=== PATIENT | female | born 1980 | race Caucasian/White ===

== ENCOUNTER 2019-08-22 01:10 | Emergency (ER) | payer OTHER, MEDICAID ==
[~2019-08-22] VITALS: Ht 160 cm; Wt 106.6 kg
[2019-08-22 01:19] VITALS: BP 110/72
--- NOTE | 2019-08-22 01:35 | NUR ---
PT MOVED FROM EMS [facility] TO BED 12
--- NOTE | 2019-08-22 01:44 | NUR ---
XR AT BEDSIDE.
[2019-08-22] MEDS ORDERED: KETOROLAC 30 MG/ML VIAL IM ONE (01:45)
--- NOTE | 2019-08-22 01:47 | NUR ---
AROUND 7PM HEALTHCARE WORKER AT [facility] ROLLED PT TO CHANGE HER AND ROLLED TOO FAR AND PT FELL OUT OF BED AND ONTO THE FLOOR AND SUSTAINED A HEAD LACERATION TO LEFT FOREHEAD AND CENTER OF FOREHEAD; NO ACTIVE BLEEDING, DRY BLOOD PRESENT. APPEARS FACILITY APPLIED STERI-STRIPS; C/O RIGHT BIG TOE PAIN 09/08, WHICH HAS BEEN AN ONGOING C/C AT THE FACILITY PER EMS; PER EMS PT'S BASELINE IS A/O X 3. RT BIG TOE SHOWS REDNESS. VSS. PMH: QUADRIPLEGIC/CENTRAL PAIN SYNDROME/GERD/ANXIETY NKA.
--- NOTE | 2019-08-22 01:58 | NUR ---
[facility]ARM[facility] ORDERED BLOOD WORK FOR URIC ACID LEVEL. PT REFUSED TO HAVE BLOOD DRAWN. MICHELE SWANSON AWARE.
[2019-08-22] MEDS ORDERED: LIDOCAINE/EPI 1% 1:100000 20 ML VIAL INJ ONE (02:10)
--- NOTE | 2019-08-22 02:25 | NUR ---
PT TRANSFERRED TO CT VIA [facility].
--- NOTE | 2019-08-22 02:45 | NUR ---
PT RETURNED BACK FROM CT VIA [facility].
--- NOTE | 2019-08-22 02:50 | NUR ---
MICHELE SPOKE TO PT ABOUT URIC ACID BLOOD DRAW AND PT CHANGED HER MIND AND ACCEPTED BLOOD TO BE DRAWN.
[2019-08-22] MEDS ORDERED: BACITRACIN OINT 500 UNITS/GM PKT TP ONE ×2 (03:07→03:10)
--- NOTE | 2019-08-22 04:00 | NUR ---
CALLED [facility] TO GIVE REPORT. SPOKE TO GREGORIO RN CERAMIST AND LET HER KNOW THAT TRANSPORT WILL ARRIVE AT [phone] TODAY. ALL QUESTIONS AND CONCERNS ANSWERED AT THIS TIME.
--- NOTE | 2019-08-22 04:00 | NUR ---
GREGORIO RN INFORMATION MANAGEMENT OFFICER SAID WHEN TRNASPORTATION COMES PT WILL BE GOING TO ROOM 28A.
--- NOTE | 2019-08-22 04:01 | NUR ---
PT IS SLEEPING COMFORTABLY IN BED. SIDE RAILS UP X1. NO DISTRESS NOTED.
--- NOTE | 2019-08-22 04:18 | NUR ---
PT REFUSED ORTHOBOOT PER EMT.
--- NOTE | 2019-08-22 06:41 | NUR ---
spoke to pt mother carson for update on pt. pt was okay to release info on her condition. all questions and concerns answered at this time.
--- NOTE | 2019-08-22 07:10 | NUR ---
Pt report given to YASIR FELIX. Transfer of care at this time.
--- NOTE | 2019-08-22 08:18 | NUR ---
PT RESTING IN BED, AROUSABLE TO VOICE. RESP EVEN AND UNLABORED. BED IN LOWEST POSITION. ALL NEEDS MET AT THIS TIME
[2019-08-22 10:30] VITALS: BP 121/75
--- NOTE | 2019-08-22 10:30 | NUR ---
Patient discharged with v/s stable. Written and verbal after care instructions given and explained. Patient verbalized understanding. Ambulance Transport with by caregiver. All questions addressed prior to discharge. Advised to follow up with PMD.
--- NOTE | 2019-08-22 10:31 | NUR ---
[facility] [facility] at bedside for return transport to [facility].
== END 2019-08-22 10:31 | disposition home or self-care (01) ==
LOC: MED 01:10
DX: S92.424A Nondisplaced fracture of distal phalanx of right great toe, initial encounter for closed fracture (principal); S01.81XA Laceration without foreign body of other part of head, initial encounter; K21.9 Gastro-esophageal reflux disease without esophagitis; F41.9 Anxiety disorder, unspecified; W06.XXXA Fall from bed, initial encounter; Y93.89 Activity, other specified; Y92.89 Other specified places as the place of occurrence of the external cause; Y99.8 Other external cause status
CPT/HCPCS: 12013; 36415; 70450; 70486; 73660; 84550; 90471; 90715; 96372; 99285; J1885; J2001; Q0092

== ENCOUNTER 2022-09-12 13:40 | Inpatient (IN) | payer OTHER, MEDICAID ==
[~2022-09-12] VITALS: Ht 160 cm; Wt 59.9 kg
[2022-09-12 13:48] VITALS: BP 113/63; PULSE 109; RESP 20; TEMP 99.3
--- NOTE | 2022-09-12 13:58 | NUR ---
Patient BIBA to bed 11.
[2022-09-12] MEDS ORDERED: NACL 0.9% 1,000 ML IV SCH (14:00)
[2022-09-12] MEDS ORDERED: cefTRIAXone 1,000 MG in DEXT 5% MINI-BAG PLUS 50 ML IV ONE (14:00)
--- NOTE | 2022-09-12 14:10 | NUR ---
Lab at bedside
--- NOTE | 2022-09-12 14:15 | NUR ---
X-Ray at bedside.
[2022-09-12 14:22] LABS: BASOPHILS # (AUTO) 0.2 K/uL (0.00-0.22); BASOPHILS % (AUTO) 1.3 % (0.0-2.0); EOSINOPHILS # (AUTO) 0.6 K/uL (0-0.4); EOSINOPHILS % (AUTO) 4.3 % (0.0-4.0); HEMATOCRIT 33.3 % (36-48); HEMOGLOBIN 10.5 g/dL (12.0-16.0); LYMPHOCYTES # (AUTO) 3.2 K/uL (2.5-16.5); LYMPHOCYTES % (AUTO) 21.8 % (20.5-51.1); MEAN CORPUSCULAR HEMOGLOBIN 24 pg (27-31); MEAN CORPUSCULAR HGB CONC 32 g/dL (33-37); MEAN CORPUSCULAR VOLUME 76.2 fL (80-94); MONOCYTES # (AUTO) 0.9 K/uL (0.8-1.0); MONOCYTES % (AUTO) 6.1 % (1.7-9.3); NEUTROPHILS # (AUTO) 9.8 K/uL (1.8-7.7); NEUTROPHILS % (AUTO) 66.5 % (42.2-75.2); PLATELET COUNT (AUTO) 519 K/uL (140-450); RED BLOOD CELL COUNT(AUTO) 4.37 MIL/uL (4.20-5.40); RED CELL DISTRIBUTION WIDTH 17.2 % (11.6-13.7); WHITE BLOOD COUNT (AUTO) 14.7 K/uL (4.8-10.8)
[2022-09-12 14:44] LABS: ALBUMIN 2.9 g/dL (3.4-5.0); ANION GAP 11.7 (8-16); CARBON DIOXIDE 24.7 mmol/L (21-32); CREATININE 0.6 mg/dL (0.6-1.3); POTASSIUM 3.4 mmol/L (3.5-5.1); TOTAL BILIRUBIN 0.1 mg/dL (0.0-1.0)
--- NOTE | 2022-09-12 14:50 | NUR ---
# 8 FR Urinary catheter inserted utilizing sterile technique. Immediate return of 100 ml yellow urine noted. Urine sample collected and sent to lab. Pt tolerated procedure well. Incontinence care was provided to patient.
--- NOTE | 2022-09-12 14:55 | NUR ---
Patient taken to CT via gurney.
--- NOTE | 2022-09-12 15:08 | NUR ---
patient returned from CT.
--- NOTE | 2022-09-12 15:45 | NUR ---
42 y/o female biba from [facility] for ALOC and increased WBC. WBC was 16.84 on 09/11/22. Patient is AAOx2. Per EMS, patient's baseline is at AAOx 2. Patient is on Levaquin 500mg PO. Patient is noted to have contractions to both arms. Patient denies any pain or discomfort at this time. Patient is a DNR with selective treatment. Call light is within reach. Medical History: Quadriplegia, Intracranial Injury without loss of conciousness, GERD NKDA
[2022-09-12 15:47] LABS: BILIRUBIN,URINE NEGATIVE (NEGATIVE); BLOOD, URINE TRACE-I (NEGATIVE); COLOR,URINE YELLOW (YELLOW); LEUKOCYTE ESTERASE ,URINE 1+ (NEGATIVE); NITRITE, URINE NEGATIVE (NEGATIVE); UGLUCOSE NEGATIVE (NEGATIVE)
[2022-09-12] MEDS ORDERED: cefTRIAXone 1,000 MG VIAL ONE (15:51)
--- NOTE | 2022-09-12 16:07 | NUR ---
Called and spoke to KAYLEIGH Jones at [facility] to request med list to be faxed.
[2022-09-12 16:18] LABS: APPEARANCE,URINE HAZY (CLEAR)
[2022-09-12 16:24] LABS: RBC,URINE 0-5 /HPF (0-5)
[2022-09-12] MEDS ORDERED: LACT-103 PO (18:17)
[2022-09-12] MEDS ORDERED: DOCU-299 PO (18:17)
[2022-09-12] MEDS ORDERED: CYCL-711 PO (18:17)
[2022-09-12] MEDS ORDERED: GABA100C PO (18:17)
--- NOTE | 2022-09-12 18:34 | NUR ---
Patient will be admitted to care of DR JACKSON. Admited to TELEMETRY. Will go to [id number]. Belongings list completed. Report to POLLO COOLEY
--- NOTE | 2022-09-12 18:45 | NUR ---
RECEIVED REPORT FROM ER NURSE, PT ARRIVED VIA [facility]. PT IS STABLE, CALL LIGHT WITHIN REACH.
[2022-09-12 19:00] VITALS: BP 112/80; PULSE 98; RESP 18; TEMP 98; O2SAT 99
--- NOTE | 2022-09-12 19:20 | NUR ---
ENDORSED TO [employer]ER[employer] SAL[employer] CONSULTANT NURSE FOR CONTINUITY OF CARE AND ADMISSION. PT IS STABLE, CALL LIGHT WITHIN REACH.
--- NOTE | 2022-09-12 19:30 | NUR ---
RECEIVED REPORT FROM DAY RN FOR CONTINUITY OF CARE. PT AWAKE, ALERT AND ORIENTED X 2. ON ROOM AIR, BREATHING EVEN AND UNLABORED. IV ON L HAND G22. NO S/SX OF DISTRESS. ALL PRECAUTIONS IN PLACE. CALL LIGHT WITHIN REACH.WILL CONTINUE TO MONITOR.
[2022-09-12 20:00] VITALS: PULSE 103
--- NOTE | 2022-09-12 20:00 | NUR ---
FED PATIENT. SPOKE WITH MOTHER KAMERON, CONTACT NUMBER GIVEN. ALL PRECAUTIONS IN PLACE. CALL LIGHT WITHIN REACH. WILL CONTINUE TO MONITOR.
[2022-09-12] MEDS ORDERED: AZITHROMYCIN 500 MG INJ VIAL IV ONE (20:35)
[2022-09-12] MEDS: AZITHROMYCIN 500 MG in DEXTROSE 5% 250 ML IV SCH (21:00)
[2022-09-12] MEDS ORDERED: LORazepam 2 MG/ML VIAL IVP PRN (22:25)
[2022-09-13] VITALS: BP 115/61; PULSE 102; RESP 18; TEMP 98.1; O2SAT 99
--- NOTE | 2022-09-13 03:46 | NUR ---
PT ASLEEP. NO S/SX OF DISTRESS. VITAL SIGNS STABLE. ALL PRECAUTIONS IN PLACE. CALL LIGHT WITHIN REACH. WILL CONTINUE TO MONITOR.
[2022-09-13 04:00] VITALS: BP 109/51; PULSE 94; PULSE 96; RESP 18; TEMP 97.2; O2SAT 98
[2022-09-13 05:01] LABS: BASOPHILS # (AUTO) 0.2 K/uL (0.00-0.22); BASOPHILS % (AUTO) 1.3 % (0.0-2.0); EOSINOPHILS # (AUTO) 0.6 K/uL (0-0.4); EOSINOPHILS % (AUTO) 4.1 % (0.0-4.0); HEMATOCRIT 30.6 % (36-48); HEMOGLOBIN 9.8 g/dL (12.0-16.0); LYMPHOCYTES # (AUTO) 3.5 K/uL (2.5-16.5); LYMPHOCYTES % (AUTO) 24.2 % (20.5-51.1); MEAN CORPUSCULAR HEMOGLOBIN 24 pg (27-31); MEAN CORPUSCULAR HGB CONC 32 g/dL (33-37); MEAN CORPUSCULAR VOLUME 75.9 fL (80-94); MONOCYTES % (AUTO) 7.2 % (1.7-9.3); NEUTROPHILS # (AUTO) 9.1 K/uL (1.8-7.7); NEUTROPHILS % (AUTO) 63.2 % (42.2-75.2); PLATELET COUNT (AUTO) 483 K/uL (140-450); RED BLOOD CELL COUNT(AUTO) 4.03 MIL/uL (4.20-5.40); RED CELL DISTRIBUTION WIDTH 17.2 % (11.6-13.7); WHITE BLOOD COUNT (AUTO) 14.4 K/uL (4.8-10.8)
[2022-09-13 05:05] LABS: ANION GAP 10.8 (8-16); CARBON DIOXIDE 25.1 mmol/L (21-32); CREATININE 0.5 mg/dL (0.6-1.3); POTASSIUM 3.9 mmol/L (3.5-5.1)
--- NOTE | 2022-09-13 07:01 | NUR ---
PT IS STABLE. NO ACUTE EVENTS THROUGHOUT THE NIGHT. ALL NEEDS MET.NO S/SX OF DISTRESS. NO COMPLAINS OF PAIN AT THIS MOMENT. ALL PRECAUTIONS IN PLACE. CALL LIGHT WITHIN REACH. WILL ENDORSE TO DAY SHIFT NURSE.
--- NOTE | 2022-09-13 07:30 | NUR ---
RECEIVED PT FROM NIGHT RN, PT IS AWAKE AND LYING ON THE BED WITH SIDE RAILS UP AND CALL LIGHT WITHIN REACH, IV LINE NOTED ON THE RIGHT HAND G. 22 ON SALINE LOCK, ON ROOM AIR, PT IS ORIENTED TO SELF ONLY, NO SIGN OF DISTRESS NOTED AND WILL CONTINUE TO MONITOR PT.
[2022-09-13 08:00] VITALS: BP 112/76; PULSE 103; PULSE 87; RESP 18; TEMP 97.5; O2SAT 98
[2022-09-13] MEDS ORDERED: MAG SULF 2000 MG/WATER PREMIX 50 ML IV PRN (08:00)
[2022-09-13 12:00] VITALS: BP 109/38; PULSE 74; RESP 18; TEMP 97.8; O2SAT 94
--- NOTE | 2022-09-13 14:30 | NUR ---
PT HAD A BOWEL MOVEMENT AND WAS CLEANED AND REPOSITIONED NOW.
--- NOTE | 2022-09-13 15:30 | NUR ---
SWALLOW EVALUATION IS BEING DONE TO PT NOW.
--- NOTE | 2022-09-13 15:44 | NUR ---
PT WAS SEEN FOR DYSPHAGIA. PT WAS ABLE TO SAFELY SWALLOW PUREE DIET WITH THIN LIQUID. MILD DIFFICULTY WITH MASTICATION SKILLS FOR MS DIET. RECOMMENDATION PUREE DIET WITH THIN LIQUID
[2022-09-13 16:00] VITALS: BP 115/80; PULSE 80; RESP 18; TEMP 97.6; O2SAT 95
[2022-09-13] MEDS: AZITHROMYCIN 500 MG in DEXTROSE 5% 250 ML IV SCH (16:55)
--- NOTE | 2022-09-13 19:47 | NUR ---
ENDORSED PT TO NIGHT RN FOR CONTINUITY OF CARE, PT IS STABLE AT THIS TIME
[2022-09-13 20:00] VITALS: BP 118/75; PULSE 85; PULSE 87; RESP 18; TEMP 98; O2SAT 97; O2SAT 98
[2022-09-13] MEDS ORDERED: DOCUSATE SODIUM 100 MG GELCAP PO PRN (22:05)
[2022-09-13] MEDS ORDERED: ONDANSETRON 4 MG/2 ML VIAL IVP PRN (22:05)
[2022-09-13] MEDS ORDERED: MORPHINE SULFATE 2 MG/ML SYR IVP PRN (22:05)
[2022-09-13] MEDS ORDERED: POTASSIUM CHLORIDE 10 MEQ TABER PO PRN (22:05)
[2022-09-13] MEDS ORDERED: ACETAMINOPHEN 325 MG TAB PO PRN (22:05)
[2022-09-13] MEDS ORDERED: LORazepam 2 MG/ML VIAL IVP PRN (22:05)
[2022-09-13] MEDS: NACL 0.9% 1,000 ML IV SCH (22:05)
[2022-09-14] VITALS: BP 112/72; PULSE 82; RESP 18; TEMP 97.8; O2SAT 9
[2022-09-14 04:00] VITALS: BP 116/74; PULSE 80; RESP 18; TEMP 97.6; O2SAT 95
--- NOTE | 2022-09-14 06:17 | NUR ---
Received patient from previous shift, patient is alert and oriented x3, came in for alter mental status. Slept well overnight, vital sign is stable, has 1 huge brown, soft bowel movement. Placed new 24 gauge piv at left hand, runs with nss @100ml/hour. Right hand iv is infiltrated, warm compress placed over right hand. Q2 hour turning, skin is intact, patient is paraplegic.
[2022-09-14 06:50] LABS: BASOPHILS # (AUTO) 0.1 K/uL (0.00-0.22); BASOPHILS % (AUTO) 0.9 % (0.0-2.0); EOSINOPHILS # (AUTO) 0.5 K/uL (0-0.4); EOSINOPHILS % (AUTO) 3.5 % (0.0-4.0); HEMATOCRIT 31.1 % (36-48); LYMPHOCYTES # (AUTO) 2.8 K/uL (2.5-16.5); LYMPHOCYTES % (AUTO) 20.9 % (20.5-51.1); MEAN CORPUSCULAR HEMOGLOBIN 24 pg (27-31); MEAN CORPUSCULAR HGB CONC 32 g/dL (33-37); MEAN CORPUSCULAR VOLUME 75.8 fL (80-94); MONOCYTES # (AUTO) 0.9 K/uL (0.8-1.0); MONOCYTES % (AUTO) 6.4 % (1.7-9.3); NEUTROPHILS # (AUTO) 9.1 K/uL (1.8-7.7); NEUTROPHILS % (AUTO) 68.3 % (42.2-75.2); PLATELET COUNT (AUTO) 485 K/uL (140-450); RED BLOOD CELL COUNT(AUTO) 4.11 MIL/uL (4.20-5.40); RED CELL DISTRIBUTION WIDTH 17.1 % (11.6-13.7); WHITE BLOOD COUNT (AUTO) 13.3 K/uL (4.8-10.8)
[2022-09-14 06:57] LABS: ANION GAP 10.2 (8-16); CARBON DIOXIDE 26.4 mmol/L (21-32); CREATININE 0.4 mg/dL (0.6-1.3); POTASSIUM 3.6 mmol/L (3.5-5.1)
[2022-09-14 07:59] VITALS: RESP 20; O2SAT 98
--- NOTE | 2022-09-14 08:00 | NUR ---
receive the patient from the auto club travel counselor rn in rm 111A with admitting diagnosis of altered mental status pneumonia , urinary tract infection . for antibiotic therapy . will continue to monitor
[2022-09-14 08:01] VITALS: PULSE 85; RESP 20; O2SAT 99
[2022-09-14] MEDS: NACL 0.9% 1,000 ML IV SCH (09:56)
--- NOTE | 2022-09-14 11:23 | NUR ---
PATIENT HAS BEEN SCREENED AND CATEGORIZED MODERATE NUTRITION RISK. PATIENT WILL BE SEEN WITHIN 3-5 DAYS OF ADMISSION. 09/13/22-09/17/[address]
--- NOTE | 2022-09-14 11:30 | NUR ---
gave report to [facility] Vu Gracie [phone] under the care of Md Medina in rm 28A . will see the PCP in one week
--- NOTE | 2022-09-14 12:52 | NUR ---
DC orders, patient to return to [facility]. supervisor process testing called [facility] for covered transport with [facility], tenative sisal picker time 1400 via julio, reference number [id number]. Patients nurse made aware. Addendum: 09/14/22 at 1442 by Elyssa Coello RN RN supervisor process testing followed up with [facility] for time of transport [phone]), [facility] will pick patient up no later than 1600. Patients RN updated on above.
--- NOTE | 2022-09-14 14:00 | NUR ---
discontinue the intravenous port , identification [email or web address] . 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
== END 2022-09-14 15:29 | DRG 871 ==
LOC: MED 13:40 → MTU 17:15
PROC: 0T9B70Z Drainage of Bladder with Drainage Device, Via Natural or Artificial Opening (ICD-10-PCS; principal; 2022-09-12)
DX: A41.9 Sepsis, unspecified organism (principal); G82.50 Quadriplegia, unspecified; J18.9 Pneumonia, unspecified organism; N39.0 Urinary tract infection, site not specified; K21.9 Gastro-esophageal reflux disease without esophagitis
CPT/HCPCS: 36415; 70450; 71045; 80048; 80053; 81001; 83036; 83605; 83735; 83880; 84484; 85025; 87040; 87081; 87086; 87186; 92526; 93005; J0456; J0696; J7060; Q0092

== ENCOUNTER 2023-11-18 17:23 | Emergency (ER) | payer OTHER, MEDICAID ==
[~2023-11-18] VITALS: Ht 167.6 cm; Wt 99.8 kg
[~2023-11-18 17:23] MED LIST: CYCL-711 PO; DOCU-299 PO; GABA100C PO; LACT-191 PO
[2023-11-18 17:29] VITALS: BP 126/78; PULSE 75; RESP 17; TEMP 98.1; O2SAT 98
[2023-11-18 18:55] LABS: BASOPHILS # (AUTO) 0.2 K/uL (0.00-0.22); BASOPHILS % (AUTO) 1.4 % (0.0-2.0); EOSINOPHILS # (AUTO) 0.7 K/uL (0-0.4); EOSINOPHILS % (AUTO) 4.8 % (0.0-4.0); HEMATOCRIT 33.1 % (36-48); HEMOGLOBIN 10.2 g/dL (12.0-16.0); LYMPHOCYTES % (AUTO) 28.4 % (20.5-51.1); MEAN CORPUSCULAR HEMOGLOBIN 22 pg (27-31); MEAN CORPUSCULAR HGB CONC 31 g/dL (33-37); MEAN CORPUSCULAR VOLUME 70.9 fL (80-94); NEUTROPHILS # (AUTO) 8.3 K/uL (1.8-7.7); NEUTROPHILS % (AUTO) 58.4 % (42.2-75.2); PLATELET COUNT (AUTO) 534 K/uL (140-450); RED BLOOD CELL COUNT(AUTO) 4.67 MIL/uL (4.20-5.40); RED CELL DISTRIBUTION WIDTH 17.9 % (11.6-13.7); WHITE BLOOD COUNT (AUTO) 14.2 K/uL (4.8-10.8)
[2023-11-18 19:43] LABS: ANION GAP 12.4 (8-16); CALCIUM 8.6 mg/dL (8.5-10.1); CARBON DIOXIDE 25.5 mmol/L (21-32); CREATININE 0.5 mg/dL (0.6-1.3); POTASSIUM 3.9 mmol/L (3.5-5.1)
[2023-11-18 19:46] LABS: ALANINE AMINOTRANSFERASE 8 U/L (12-78); ALCOHOL, BLOOD 4 mg/dL (<10); ALKALINE PHOSPHATASE 93 U/L (50-136); ASPARTATE AMINOTRANSFERASE 14 U/L (15-37); CREATINE KINASE, TOTAL 19 U/L (26-192); THYROID STIMULATING HORMONE 2.28 uIU/mL (0.34-3.74); TOTAL BILIRUBIN 0.2 mg/dL (0.0-1.0); TOTAL PROTEIN, SERUM 7.8 g/dL (6.4-8.2)
[2023-11-18 19:47] LABS: ACETAMINOPHEN < 0.5 ug/ml (10-30); SALICYLATE < 2.8 mg/dL (2.8-20.0)
[2023-11-18 22:47] LABS: APPEARANCE,URINE CLEAR (CLEAR); BILIRUBIN,URINE NEGATIVE (NEGATIVE); BLOOD, URINE TRACE-I (NEGATIVE); COLOR,URINE YELLOW (YELLOW); LEUKOCYTE ESTERASE ,URINE NEGATIVE (NEGATIVE); NITRITE, URINE NEGATIVE (NEGATIVE); PH,URINE 6.5 (5.0-9.0); PROTEIN,URINE NEGATIVE (NEGATIVE); UGLUCOSE NEGATIVE (NEGATIVE); UROBILINOGEN,URINE 0.2 EU/dL (0.2 - 1)
[2023-11-18 22:51] LABS: BACTERIA,URINE 10-30 (MOD) /HPF (None Seen); MUCUS,URINE 1+ /LPF (None Seen); SQUAMOUS EPITHELIAL CELL,UR 4-10 (MOD) /LPF (0-3 (FEW))
[2023-11-18 22:52] LABS: AMPHETAMINE, URINE NEGATIVE ng/ml (NEG <=1000); BARBITURATE, URINE NEGATIVE ng/ml (NEG <=200); BENZODIAZEPINE, URINE NEGATIVE ng/mL (NEG <=200); CANNABINOID, URINE NEGATIVE ng/mL (NEG <=50); COCAINE, URINE NEGATIVE ng/mL (NEG <=300); PHENCYCLIDINE SCREEN,URINE NEGATIVE ng/mL (NEG <=25)
[2023-11-18 22:53] LABS: OPIATE, URINE NEGATIVE ng/mL (NEG <=2000)
[2023-11-19] MEDS ORDERED: cefTRIAXone 1,000 MG VIAL ONE (00:49)
[2023-11-19] MEDS ORDERED: CEPH-588 PO (01:44)
[2023-11-19 13:00] VITALS: BP 121/71; PULSE 99; RESP 16; TEMP 97.8; O2SAT 100
== END 2023-11-19 13:00 ==
LOC: MED 17:23
DX: N39.0 Urinary tract infection, site not specified (principal); R41.0 Disorientation, unspecified; R45.1 Restlessness and agitation; Z86.69 Personal history of other diseases of the nervous system and sense organs; Z79.899 Other long term (current) drug therapy
CPT/HCPCS: 36415; 70450; 71045; 80048; 80076; 80305; 81001; 82140; 82550; 83605; 84443; 84484; 85025; 87040; 87086; 93005; 96365; 99285; G0480; G0482; J0696; Q0092